=== PATIENT | female | born 1955 ===

== ENCOUNTER 2017-09-15 08:03 | Emergency (ER) | payer OTHER ==
[~2017-09-15] VITALS: Ht 157.5 cm; Wt 77.3 kg
[2017-09-15] MEDS ORDERED: METO25TA6 PO (08:11)
[2017-09-15] MEDS ORDERED: IBUP-2070 PO (08:11)
[2017-09-15] MEDS ORDERED: PRED5L PO (08:11)
[2017-09-15] MEDS ORDERED: HYDR200T4 PO (08:11)
[2017-09-15] MEDS ORDERED: LEVO125 PO (08:11)
[2017-09-15 09:37] VITALS: BP 147/90
== END 2017-09-15 10:17 | disposition home or self-care (01) ==
LOC: EMS 08:05
DX: M25.511 Pain in right shoulder (principal); I10 Essential (primary) hypertension; E03.9 Hypothyroidism, unspecified; M06.9 Rheumatoid arthritis, unspecified; Z79.899 Other long term (current) drug therapy
CPT/HCPCS: 99281